=== PATIENT | female | born 1975 | race Caucasian/White ===

== ENCOUNTER 2024-11-30 09:46 | Day surgery (SDC) | payer OTHER ==
[2024-11-23 11:14] LABS: HEMOGLOBIN 14.1 g/dL (12.0-15.00); MEAN CELL VOLUME 92.4 fL (80.00-100.00); MEAN CORPUSCULAR HEMOGLOBIN 30.3 pg (27.00-32.0); MEAN CORPUSCULAR HGB CONC 32.8 g/dl (32.0-36.0); PLATELET COUNT 253 K/uL (150-450); RED BLOOD COUNT 4.65 M/uL (4.00-6.00); RED CELL DISTRIBUTION WIDTH 15.3 % (11.5-14.5)
[2024-11-23 11:47] LABS: INR 0.98; PARTIAL THROMBOPLASTIN TIME 25.7 SECONDS (22.0-34.0); PROTHROMBIN TIME 10.7 SECONDS (9.0-11.5)
[2024-11-23 11:57] LABS: ALBUMIN 3.7 gm/dL (3.4-5.0); BILIRUBIN TOTAL 0.4 mg/dL (0.3-1.2); CALCIUM 9.1 mg/dL (8.5-10.1); CREATININE SERUM 0.72 mg/dL (0.55-1.02); GFR 86.82; GLOBULINA 3.5 G/DL (2.4-3.5); POTASSIUM 4.29 mEq/L (3.5-5.1); TOTAL PROTEIN 7.2 gm/dL (6.4-8.2)
[2024-11-23 11:58] VITALS: BP 142/83
[~2024-11-30] VITALS: Ht 167.6 cm; Wt 84.8 kg
[~2024-11-30 09:46] MED LIST: ATROVENT 00.5 MG/2.5 IH; AVELOX ABC PAC400 MG; BUDESONIDE0.5 MG/2 M; BUDESONIDE0.5 MG/2 M IH; FYAVOLV 0.5 MG1 EACH PO; IBU800 MG PO; IPRATROPIUM0.2 MG/ML; IRON240 MG; MAGNESIUM200 MG PO; MUCINEX600 MG; OMNIPRED10 ML; SYNTHROID88 MCG PO; VITAMIN A; VITAMIN C1000 MG; VITAMIN D
[2024-11-30] MEDS ORDERED: POVIDONE-IODINE 118 ML BOTT TOP ONE (13:04)
[2024-11-30] MEDS ORDERED: KETOROLAC TROMETHAMINE 30 MG VIAL IV ONE (14:30)
== END 2024-11-30 16:25 | disposition home or self-care (01) ==
LOC: CIR.AMB 09:46
PROVIDERS: ATTEND Student in an Organized Health Care Education/Training Program
DX: N93.8 Other specified abnormal uterine and vaginal bleeding (principal); N84.0 Polyp of corpus uteri; I10 Essential (primary) hypertension; Z91.09 Other allergy status, other than to drugs and biological substances; J45.909 Unspecified asthma, uncomplicated; F41.9 Anxiety disorder, unspecified; M19.90 Unspecified osteoarthritis, unspecified site

== ENCOUNTER 2025-01-21 09:30 | Inpatient (IN) | payer OTHER ==
[~2025-01-21] VITALS: Ht 167.6 cm; Wt 85.7 kg
[2025-01-21 12:30] LABS: HEMATOCRIT 42.8 % (36.0-45.00); HEMOGLOBIN 14.3 g/dL (12.0-15.00); MEAN CELL VOLUME 92.9 fL (80.00-100.00); MEAN CORPUSCULAR HEMOGLOBIN 30.9 pg (27.00-32.0); MEAN CORPUSCULAR HGB CONC 33.3 g/dl (32.0-36.0); PLATELET COUNT 239 K/uL (150-450); RED BLOOD COUNT 4.61 M/uL (4.00-6.00); RED CELL DISTRIBUTION WIDTH 15.8 % (11.5-14.5)
[2025-01-21 13:21] LABS: ALBUMIN 3.5 gm/dL (3.4-5.0); ALKALINE PHOSPHATASE 49 U/L (50-136); ALT/SGPT 15 U/L (12-78); ANION GAP 7 (10.0-20.0); AST/SGOT 14 U/L (15-37); BILIRUBIN TOTAL 0.32 mg/dL (0.3-1.2); BLOOD UREA NITROGEN 12 mg/dL (7-18); BUN CREA RATIO 19 (7.0-25.0); CARBON DIOXIDE 30 mEq/L (21-32); CHLORIDE 112 mmol/L (98-107); CREATININE SERUM 0.63 mg/dL (0.55-1.02); GFR 101.29; GLOBULINA 3.3 G/DL (2.4-3.5); GLUCOSE FASTING 78 mg/dL (65-100); OSMOLALITY SERUM 287 MOSM/KG (275-295); POTASSIUM 4.25 mEq/L (3.5-5.1); SODIUM 145 mmol/L (136-145); TOTAL PROTEIN 6.8 gm/dL (6.4-8.2)
[2025-01-21 13:27] LABS: HCG QUANTITATIVE < 1 mUI/mL (1-3)
[2025-01-21 15:04] LABS: INR 1.02; PARTIAL THROMBOPLASTIN TIME 25.9 SECONDS (22.0-34.0); PROTHROMBIN TIME 11.1 SECONDS (9.0-11.5)
[2025-02-04 13:02] LABS: RH NEGATIVE
[2025-02-08] MEDS ORDERED: CEFAZOLIN SODIUM 1,000 MG VIAL ONE ×3 (12:03→22:28)
[2025-02-08] MEDS ORDERED: POVIDONE-IODINE 118 ML BOTT TOP ONE (14:20)
[2025-02-08] MEDS ORDERED: METRONIDAZOLE/SODIUM CHLORIDE 500 MG/100 ML PIGGYBACK IV ONE (18:57)
[2025-02-08] MEDS ORDERED: TRANEXAMIC ACID 100MG/1ML (1000MG) AMPUL IV ONE (18:58)
[2025-02-08] MEDS ORDERED: VISTASEAL DUAL APPICATOR 1 EACH APPL TOP ONE (21:00)
[2025-02-08] MEDS ORDERED: THROMBIN,HU/FIBRINOGEN/CALCIUM 10 ML SYRINGE TOP ONE (21:00)
[2025-02-08] MEDS ORDERED: SUGAMMADEX SODIUM 200 MG/2 ML VIAL IV ONE (21:55)
[2025-02-08] MEDS ORDERED: HEMOSTATIC MATRIX WITH THROMBIN KIT TOP ONE (23:29)
[2025-02-08] MEDS ORDERED: SURGIFLO APPLICATOR 1 EACH APPL TOP ONE (23:29)
[2025-02-09] MEDS ORDERED: KETOROLAC TROMETHAMINE 30 MG VIAL IV SCH (00:40)
[2025-02-09] MEDS ORDERED: RINGERS SOLUTION,LACTATED 1,000 ML IV SCH (00:45)
[2025-02-09] MEDS ORDERED: ACETAMINOPHEN 500 MG GEL..CAP PO SCH (01:00)
[2025-02-09] MEDS ORDERED: ENALAPRILAT DIHYDRATE 2.5 MG/2 ML VIAL IV ONE ×3 (01:40→02:45)
[2025-02-09] MEDS ORDERED: KETOROLAC TROMETHAMINE 30 MG VIAL IV ONE ×2 (01:40→02:40)
[2025-02-09] MEDS ORDERED: GABAPENTIN 300 MG CAPSULE PO SCH (01:55)
[2025-02-09] MEDS ORDERED: MORPHINE SULFATE 4 MG/ML CARTRIDGE IV PRN (02:00)
[2025-02-09] MEDS ORDERED: ENALAPRILAT DIHYDRATE 1.25 MG/ML VIAL IV ONE (02:40)
[2025-02-09] MEDS ORDERED: ALBUTEROL SULFATE 3 ML/2.5 MG AMPUL.NEB IH STA (02:47)
[2025-02-09] MEDS ORDERED: ALBUTEROL SULFATE 3 ML/2.5 MG AMPUL.NEB IH SCH (02:48)
[2025-02-09 04:07] LABS: HEMOGLOBIN 12.1 g/dL (12.0-15.00); MEAN CELL VOLUME 91.5 fL (80.00-100.00); MEAN CORPUSCULAR HEMOGLOBIN 30.8 pg (27.00-32.0); MEAN CORPUSCULAR HGB CONC 33.7 g/dl (32.0-36.0); PLATELET COUNT 159 K/uL (150-450); RED BLOOD COUNT 3.94 M/uL (4.00-6.00); RED CELL DISTRIBUTION WIDTH 15.2 % (11.5-14.5)
[2025-02-09] MEDS ORDERED: KETOROLAC TROMETHAMINE 30 MG VIAL ONE (06:47)
[2025-02-09] MEDS ORDERED: ALBUTEROL SULFATE 3 ML/2.5 MG AMPUL.NEB IH ONE (07:44)
[2025-02-09] MEDS ORDERED: FUROsemide 20 MG/2 ML VIAL ONE (09:18)
[2025-02-09] MEDS ORDERED: FUROsemide 20 MG/2 ML VIAL IV ONE ×2 (09:30→22:45)
[2025-02-09] MEDS ORDERED: IPRATROPIUM BROMIDE 0.5 MG/2.5 ML AMPUL.NEB IH NR (10:00)
[2025-02-09 10:49] LABS: ALBUMIN 2.3 gm/dL (3.4-5.0); BILIRUBIN TOTAL 0.65 mg/dL (0.3-1.2); CALCIUM 7.5 mg/dL (8.5-10.1); CREATININE SERUM 0.76 mg/dL (0.55-1.02); GFR 81.57; GLOBULINA 2.2 G/DL (2.4-3.5); POTASSIUM 3.44 mEq/L (3.5-5.1); TOTAL PROTEIN 4.5 gm/dL (6.4-8.2)
[2025-02-09] MEDS ORDERED: METHYLPREDNISOLONE SOD SUCC 125 MG VIAL ONE (11:30)
[2025-02-09] MEDS ORDERED: DIPHENHYDRAMINE HCL 50 MG/ML VIAL 1ML ONE (11:30)
[2025-02-09] MEDS ORDERED: POTASSIUM CHLORIDE IN WATER 100 ML IV NR (12:35)
[2025-02-09 12:58] VITALS: BP 107/71; O2SAT 96
[2025-02-09] MEDS ORDERED: IPRATROPIUM BROMIDE 0.5 MG/2.5 ML AMPUL.NEB IH SCH (13:00)
[2025-02-09] MEDS ORDERED: METHYLPREDNISOLONE SOD SUCC 125 MG VIAL IV ONE (13:45)
[2025-02-09] MEDS ORDERED: DIPHENHYDRAMINE HCL 50 MG/ML VIAL 1ML IV ONE (13:45)
[2025-02-09 14:16] VITALS: O2SAT 99
[2025-02-09 17:00] VITALS: BP 110/72; O2SAT 100; O2SAT 98
[2025-02-09 21:00] VITALS: O2SAT 97
[2025-02-10] VITALS (9 sets, daily range): BP systolic 108–123; BP diastolic 49–76; O2SAT 90–99
[2025-02-10 07:55] LABS: MEAN CELL VOLUME 93.1 fL (80.00-100.00); MEAN CORPUSCULAR HGB CONC 33.5 g/dl (32.0-36.0); PLATELET COUNT 136 K/uL (150-450); RED BLOOD COUNT 2.37 M/uL (4.00-6.00); RED CELL DISTRIBUTION WIDTH 14.6 % (11.5-14.5)
[2025-02-10 08:03] LABS: HEMATOCRIT 22.1 % (36.0-45.00); HEMOGLOBIN 7.4 g/dL (12.0-15.00); MEAN CORPUSCULAR HEMOGLOBIN 31.2 pg (27.00-32.0)
[2025-02-10] MEDS ORDERED: FUROsemide 20 MG/2 ML VIAL IV SCH (08:15)
[2025-02-10 09:04] LABS: MEAN CELL VOLUME 91.4 fL (80.00-100.00); MEAN CORPUSCULAR HGB CONC 34.2 g/dl (32.0-36.0); PLATELET COUNT 146 K/uL (150-450); RED BLOOD COUNT 2.39 M/uL (4.00-6.00); RED CELL DISTRIBUTION WIDTH 14.8 % (11.5-14.5)
[2025-02-10 09:07] LABS: HEMATOCRIT 21.8 % (36.0-45.00); MEAN CORPUSCULAR HEMOGLOBIN 31.3 pg (27.00-32.0)
[2025-02-10 09:07] LABS: CALCIUM 7.6 mg/dL (8.5-10.1); CREATININE SERUM 0.56 mg/dL (0.55-1.02); GFR 116.04; POTASSIUM 3.38 mEq/L (3.5-5.1)
[2025-02-10 09:10] LABS: HEMOGLOBIN 7.5 g/dL (12.0-15.00)
[2025-02-10] MEDS ORDERED: SOD FERRIC GLUC COMPLX/SUCROSE 62.5 MG/5 ML AMPUL IV SCH (12:00)
[2025-02-10] MEDS ORDERED: POTASSIUM CHLORIDE IN WATER 100 ML IV NR (17:00)
[2025-02-11] VITALS: O2SAT 90
[2025-02-11 00:27] VITALS: BP 118/79; O2SAT 100
[2025-02-11 05:08] VITALS: O2SAT 89
[2025-02-11 08:00] VITALS: BP 145/78; O2SAT 100
[2025-02-11 08:39] LABS: MEAN CELL VOLUME 89.4 fL (80.00-100.00); MEAN CORPUSCULAR HGB CONC 34.8 g/dl (32.0-36.0); PLATELET COUNT 151 K/uL (150-450); RED BLOOD COUNT 3.13 M/uL (4.00-6.00); RED CELL DISTRIBUTION WIDTH 17.1 % (11.5-14.5)
[2025-02-11 08:47] LABS: MEAN CORPUSCULAR HEMOGLOBIN 30.9 pg (27.00-32.0)
[2025-02-11 08:49] LABS: HEMOGLOBIN 9.7 g/dL (12.0-15.00)
[2025-02-11 09:29] VITALS: O2SAT 99
[2025-02-11 12:47] VITALS: O2SAT 90
== END 2025-02-11 15:18 | disposition home or self-care (01) | DRG 742 ==
LOC: OB/GYN 01-25 09:30 → SURH 02-08 10:40 → O/R 02-08 10:40 → OB/GYN 02-08 20:47 → SURH 02-09 09:05
PROVIDERS: ADMIT Student in an Organized Health Care Education/Training Program; ATTEND Student in an Organized Health Care Education/Training Program
PROC: 0UN14ZZ Release Left Ovary, Percutaneous Endoscopic Approach (ICD-10-PCS; principal; 2025-02-09)
PROC: 0UT94ZZ Resection of Uterus, Percutaneous Endoscopic Approach (ICD-10-PCS; 2025-02-09)
PROC: 0UT74ZZ Resection of Bilateral Fallopian Tubes, Percutaneous Endoscopic Approach (ICD-10-PCS; 2025-02-09)
PROC: 0DNW4ZZ Release Peritoneum, Percutaneous Endoscopic Approach (ICD-10-PCS; 2025-02-09)
PROC: 0TNB4ZZ Release Bladder, Percutaneous Endoscopic Approach (ICD-10-PCS; 2025-02-09)
PROC: 0TJB8ZZ Inspection of Bladder, Via Natural or Artificial Opening Endoscopic (ICD-10-PCS; 2025-02-09)
PROC: 8E0W4CZ Robotic Assisted Procedure of Trunk Region, Percutaneous Endoscopic Approach (ICD-10-PCS; 2025-02-09)
PROC: 4A12X4Z Monitoring of Cardiac Electrical Activity, External Approach (ICD-10-PCS; 2025-02-09)
PROC: 4A033R1 Measurement of Arterial Saturation, Peripheral, Percutaneous Approach (ICD-10-PCS; 2025-02-09)
PROC: 3E0F7GC Introduction of Other Therapeutic Substance into Respiratory Tract, Via Natural or Artificial Opening (ICD-10-PCS; 2025-02-09)
PROC: BB24YZZ Computerized Tomography (CT Scan) of Bilateral Lungs using Other Contrast (ICD-10-PCS; 2025-02-09)
PROC: 30233N1 Transfusion of Nonautologous Red Blood Cells into Peripheral Vein, Percutaneous Approach (ICD-10-PCS; 2025-02-10)
DX: D25.1 Intramural leiomyoma of uterus (principal); D62 Acute posthemorrhagic anemia; J95.89 Other postprocedural complications and disorders of respiratory system, not elsewhere classified; N94.6 Dysmenorrhea, unspecified; R09.02 Hypoxemia
CPT/HCPCS: 58573; 44180; 52000; 82805; 36600; 94640; 71260; 93228; 36430; S2900; 71275

== ENCOUNTER 2025-02-04 09:43 | Outpatient (CLI) | payer OTHER ==
[2025-02-04 10:25] LABS: HEMATOCRIT 42.9 % (36.0-45.00); HEMOGLOBIN 14.4 g/dL (12.0-15.00); MEAN CELL VOLUME 92.2 fL (80.00-100.00); MEAN CORPUSCULAR HEMOGLOBIN 30.8 pg (27.00-32.0); MEAN CORPUSCULAR HGB CONC 33.4 g/dl (32.0-36.0); PLATELET COUNT 233 K/uL (150-450); RED BLOOD COUNT 4.65 M/uL (4.00-6.00); RED CELL DISTRIBUTION WIDTH 14.9 % (11.5-14.5)
[2025-02-04 10:34] LABS: URINE APPEARANCE Clear; URINE BILIRRUBIN Negative (NEGATIVE); URINE BLOOD Negative; URINE COLOR Yellow; URINE GLUCOSE Negative (NEGATIVE); URINE KETONE Negative (NEGATIVE); URINE LEUKOCYTE Trace; URINE NITRATE Negative; URINE PROTEIN Negative (NEGATIVE); URINE RBC 8.2 uL (0.0-20.8); URINE WBC 3.9 uL (0.0-23.2)
[2025-02-04 10:38] LABS: URINE BACTERIA 2.4 uL (0.0-1933); URINE EPITHELIAL CELLS 1.1 uL (0.0-38.8)
[2025-02-04 11:36] LABS: ALBUMIN 3.5 gm/dL (3.4-5.0); ALKALINE PHOSPHATASE 49 U/L (50-136); ALT/SGPT 16 U/L (12-78); ANION GAP 8 (10.0-20.0); AST/SGOT 13 U/L (15-37); BILIRUBIN TOTAL 0.27 mg/dL (0.3-1.2); BLOOD UREA NITROGEN 12 mg/dL (7-18); BUN CREA RATIO 19 (7.0-25.0); CALCIUM 8.9 mg/dL (8.5-10.1); CARBON DIOXIDE 28 mEq/L (21-32); CHLORIDE 110 mmol/L (98-107); CREATININE SERUM 0.62 mg/dL (0.55-1.02); GFR 103.18; GLOBULINA 3.1 G/DL (2.4-3.5); GLUCOSE FASTING 84 mg/dL (65-100); OSMOLALITY SERUM 282 MOSM/KG (275-295); POTASSIUM 4.21 mEq/L (3.5-5.1); SODIUM 142 mmol/L (136-145); TOTAL PROTEIN 6.6 gm/dL (6.4-8.2)
[2025-02-04 11:38] LABS: HCG QUANTITATIVE < 1 mUI/mL (1-3)
== END 2025-02-04 09:44 | disposition home or self-care (01) ==
LOC: LAB 09:43
PROVIDERS: ATTEND Student in an Organized Health Care Education/Training Program
DX: D25.9 Leiomyoma of uterus, unspecified (principal); N93.9 Abnormal uterine and vaginal bleeding, unspecified

== ENCOUNTER 2025-03-14 12:45 | Inpatient (IN) | payer OTHER ==
[~2025-03-14] VITALS: Ht 167.6 cm; Wt 79.4 kg
--- NOTE | 2025-03-14 18:18 | NUR ---
SE ORIENTA PTE SOBRE TX A SEGUIR, LA MISMA REFIERE ENTENDER. SE TISH MUESTRA DE LAB Y SE CANALIZA EN ANTE BRAZO IZQ
[2025-03-14 19:43] LABS: BASO % 0.9 % (0.1-1.2); EOS % 1.2 % (0.7-7.0); HEMATOCRIT 41.7 % (34.1-44.9); HEMOGLOBIN 13.8 g/dL (11.2-15.7); LYMPH % 23.7 % (19.3-53.1); MEAN CORPUSCULAR HEMOGLOBIN 29.8 pg (25.6-32.2); MONO % 7.6 % (4.7-12.5); NEUT % 65.8 % (34.0-71.1); PLATELET COUNT 397 K/uL (163-369); RED BLOOD COUNT 4.63 M/uL (3.93-5.22)
[2025-03-14] MEDS ORDERED: FAMOTIDINE/PF 20 MG in 0.9 % SODIUM CHLORIDE 8 ML IV PUSH SCH (19:49)
[2025-03-14] MEDS ORDERED: PIPERACILLIN/TAZOBACTAM SODIUM 3.375 GM in DEXTROSE 5 % IN WATER 100 ML IV SCH (19:49)
[2025-03-14] MEDS ORDERED: MONTELUKAST SODIUM 10 MG TABLET PO SCH (19:49)
[2025-03-14] MEDS ORDERED: BENZONATATE 100 MG CAPSULE PO SCH (19:50)
[2025-03-14] MEDS ORDERED: ACETAMINOPHEN 500 MG GEL..CAP PO PRN (20:00)
[2025-03-14] MEDS ORDERED: ONDANSETRON HCL 4 MG in 0.9 % SODIUM CHLORIDE 50 ML IV PRN (20:00)
[2025-03-14] MEDS ORDERED: 0.9 % SODIUM CHLORIDE 1,000 ML IV SCH (20:00)
[2025-03-14] MEDS ORDERED: LEVALBUTEROL HCL 1.25 MG/3 ML SOLUTION IH ONE (20:33)
[2025-03-14] MEDS ORDERED: BUDESONIDE 0.5 MG/2 ML AMPUL.NEB IH ONE (20:33)
[2025-03-14] MEDS ORDERED: IPRATROPIUM BROMIDE 0.5 MG/2.5 ML AMPUL.NEB IH ONE (20:33)
[2025-03-14] MEDS ORDERED: LEVALBUTEROL HCL 1.25 MG/3 ML SOLUTION IH SCH (21:00)
[2025-03-14] MEDS ORDERED: BUDESONIDE 0.5 MG/2 ML AMPUL.NEB IH SCH (21:00)
[2025-03-14] MEDS ORDERED: IPRATROPIUM BROMIDE 0.5 MG/2.5 ML AMPUL.NEB IH SCH (21:00)
[2025-03-15 03:27] LABS: INR 1.03; PARTIAL THROMBOPLASTIN TIME 25.6 SECONDS (22.0-34.0); PROTHROMBIN TIME 11.2 SECONDS (9.0-11.5)
[2025-03-15 03:38] LABS: COVID-19 AG NEGATIVE (NEGATIVE)
[2025-03-15 03:42] LABS: ALBUMIN 3.4 gm/dL (3.4-5.0); BILIRUBIN TOTAL 0.19 mg/dL (0.3-1.2); CALCIUM 9.1 mg/dL (8.5-10.1); CREATININE SERUM 0.73 mg/dL (0.55-1.02); GFR 85.45; POTASSIUM 4.79 mEq/L (3.5-5.1); TOTAL PROTEIN 6.4 gm/dL (6.4-8.2)
[2025-03-15 03:57] LABS: C-REACTIVE PROTEIN 0.43 MG/DL (0.00-0.29)
[2025-03-15] MEDS ORDERED: LEVOTHYROXINE SODIUM 88 MCG TABLET PO SCH (06:00)
[2025-03-15 07:57] LABS: PH,URINE 5.5 (5.0-8.0); URINE APPEARANCE Clear; URINE BILIRRUBIN Negative (NEGATIVE); URINE BLOOD Moderate; URINE COLOR Yellow; URINE GLUCOSE Negative (NEGATIVE); URINE KETONE Trace (NEGATIVE); URINE LEUKOCYTE Negative; URINE NITRATE Negative; URINE PROTEIN Negative (NEGATIVE); URINE UROBILINOGEN 0.2 E.U./dl
[2025-03-15 08:02] LABS: URINE BACTERIA 34.2 uL (0.0-1933); URINE EPITHELIAL CELLS 2.5 uL (0.0-38.8); URINE RBC 8.8 uL (0.0-20.8); URINE WBC 6.1 uL (0.0-23.2)
[2025-03-15 08:15] VITALS: BP 131/83; O2SAT 97
[2025-03-15] MEDS ORDERED: BENZONATATE 200 MG CAPSULE PO SCH (09:00)
[2025-03-15 16:00] VITALS: BP 122/70; O2SAT 99
[2025-03-15 21:35] LABS: HEMATOCRIT 44.6 % (34.1-44.9); HEMOGLOBIN 14.5 g/dL (11.2-15.7); LYMPH % 20.2 % (19.3-53.1); MEAN CORPUSCULAR HEMOGLOBIN 29.9 pg (25.6-32.2); MONO % 6.3 % (4.7-12.5); NEUT % 69.8 % (34.0-71.1); PLATELET COUNT 424 K/uL (163-369); RED BLOOD COUNT 4.85 M/uL (3.93-5.22); RED CELL DISTRIBUTION WIDTH 14.7 % (11.6-14.4)
[2025-03-15 21:36] LABS: BASO % 1.1 % (0.1-1.2); EOS # 0.13 (0.04-0.54); EOS % 1.6 % (0.7-7.0); LYMPH # 1.68 (1.18-3.74); MONO # 0.52 (0.24-0.82); NEUT # 5.82 (1.56-6.13)
[2025-03-15] MEDS ORDERED: MIDAZOLAM HCL 2 MG/2 ML VIAL IV ONE (22:30)
[2025-03-15] MEDS ORDERED: FentaNYL CITRATE/PF 50MCG/ML 2ML VIAL IJ ONE (22:30)
[2025-03-16 01:04] VITALS: BP 118/69; O2SAT 100
[2025-03-16 07:35] LABS: EOS # 0.18 (0.04-0.54); EOS % 2.5 % (0.7-7.0); HEMATOCRIT 38.9 % (34.1-44.9); HEMOGLOBIN 12.5 g/dL (11.2-15.7); LYMPH # 1.25 (1.18-3.74); LYMPH % 17.2 % (19.3-53.1); MEAN CORPUSCULAR HEMOGLOBIN 29.6 pg (25.6-32.2); MONO # 0.52 (0.24-0.82); MONO % 7.2 % (4.7-12.5); NEUT # 5.17 (1.56-6.13); NEUT % 71.3 % (34.0-71.1); PLATELET COUNT 327 K/uL (163-369); RED BLOOD COUNT 4.22 M/uL (3.93-5.22); RED CELL DISTRIBUTION WIDTH 14.9 % (11.6-14.4)
[2025-03-16 08:51] VITALS: BP 142/90; O2SAT 99
[2025-03-16] MEDS ORDERED: LEVALBUTEROL HCL 1.25 MG/3 ML SOLUTION IH SCH (12:00)
[2025-03-16] MEDS ORDERED: IPRATROPIUM BROMIDE 0.5 MG/2.5 ML AMPUL.NEB IH SCH (12:00)
[2025-03-16 16:00] VITALS: BP 118/76; O2SAT 99
[2025-03-17 01:27] VITALS: BP 129/74; O2SAT 100
[2025-03-17 08:00] VITALS: BP 115/75; O2SAT 98
[2025-03-17 08:17] LABS: BASO % 0.8 % (0.1-1.2); EOS # 0.11 (0.04-0.54); EOS % 1.8 % (0.7-7.0); HEMATOCRIT 40.1 % (34.1-44.9); HEMOGLOBIN 12.7 g/dL (11.2-15.7); LYMPH # 1.08 (1.18-3.74); LYMPH % 17.9 % (19.3-53.1); MEAN CORPUSCULAR HEMOGLOBIN 29.4 pg (25.6-32.2); MONO # 0.47 (0.24-0.82); MONO % 7.8 % (4.7-12.5); NEUT # 4.28 (1.56-6.13); PLATELET COUNT 339 K/uL (163-369); RED BLOOD COUNT 4.32 M/uL (3.93-5.22); RED CELL DISTRIBUTION WIDTH 14.6 % (11.6-14.4)
[2025-03-17 16:00] VITALS: BP 125/84; O2SAT 95
[2025-03-17] MEDS ORDERED: IPRATROPIUM BROMIDE 0.5 MG/2.5 ML AMPUL.NEB IH SCH (21:00)
[2025-03-17] MEDS ORDERED: LEVALBUTEROL HCL 1.25 MG/3 ML SOLUTION IH SCH (21:00)
[2025-03-18] VITALS: BP 144/88; O2SAT 99
[2025-03-18 08:00] VITALS: BP 129/80; O2SAT 97
[2025-03-18 16:26] VITALS: BP 120/77; O2SAT 100
[2025-03-19 00:45] VITALS: BP 129/89; O2SAT 99
[2025-03-19 08:18] VITALS: BP 117/81; O2SAT 98
[2025-03-19 15:00] VITALS: BP 122/78; O2SAT 98
[2025-03-19] MEDS ORDERED: CYCLOBENZAPRINE HCL 5 MG TABLET PO PRN (16:00)
[2025-03-20 00:23] VITALS: BP 126/87; O2SAT 98
[2025-03-20 07:56] VITALS: BP 115/79; O2SAT 98
[2025-03-20 15:30] VITALS: BP 132/86; O2SAT 98
[2025-03-21 00:52] VITALS: BP 133/86; O2SAT 96
[2025-03-21 07:52] LABS: BASO % 0.9 % (0.1-1.2); HEMATOCRIT 38.5 % (34.1-44.9); HEMOGLOBIN 12.7 g/dL (11.2-15.7); LYMPH # 1.26 (1.18-3.74); LYMPH % 18.8 % (19.3-53.1); MEAN CORPUSCULAR HEMOGLOBIN 30.4 pg (25.6-32.2); MONO # 0.56 (0.24-0.82); MONO % 8.4 % (4.7-12.5); NEUT # 4.57 (1.56-6.13); NEUT % 68.3 % (34.0-71.1); PLATELET COUNT 303 K/uL (163-369); RED BLOOD COUNT 4.18 M/uL (3.93-5.22); RED CELL DISTRIBUTION WIDTH 14.2 % (11.6-14.4)
[2025-03-21 08:22] LABS: ALBUMIN 3.1 gm/dL (3.4-5.0); BILIRUBIN TOTAL 0.3 mg/dL (0.3-1.2); CALCIUM 8.3 mg/dL (8.5-10.1); CREATININE SERUM 0.62 mg/dL (0.55-1.02); GFR 103.18; GLOBULINA 2.5 G/DL (2.4-3.5); POTASSIUM 4.43 mEq/L (3.5-5.1); TOTAL PROTEIN 5.6 gm/dL (6.4-8.2)
[2025-03-21 08:54] VITALS: BP 128/89; O2SAT 98
[2025-03-21 16:00] VITALS: BP 128/81; O2SAT 99
[2025-03-22 00:27] VITALS: BP 111/75; O2SAT 100
[2025-03-22 08:00] VITALS: BP 145/85; O2SAT 96
[2025-03-22] MEDS ORDERED: RINGERS SOLUTION,LACTATED 1,000 ML IV SCH (15:00)
[2025-03-22 16:00] VITALS: BP 129/78; O2SAT 96
[2025-03-22] MEDS ORDERED: IPRATROPIUM BROMIDE 0.5 MG/2.5 ML AMPUL.NEB IH SCH (21:00)
[2025-03-23 00:48] VITALS: BP 121/76; O2SAT 100
[2025-03-23 08:00] VITALS: BP 127/83; O2SAT 98
[2025-03-23 17:17] VITALS: BP 135/84; O2SAT 99
[2025-03-23] MEDS ORDERED: IOVERSOL 320 MG/ML - 50 ML VIAL IV ONE (18:04)
[2025-03-23] MEDS ORDERED: BUPIVACAINE HCL/MPF 0.5% 30ML VIAL ONE (18:26)
[2025-03-24 01:41] VITALS: BP 144/77; O2SAT 98
[2025-03-24 06:00] VITALS: O2SAT 95
[2025-03-24 06:59] LABS: BASO % 0.6 % (0.1-1.2); EOS # 0.11 (0.04-0.54); EOS % 1.3 % (0.7-7.0); HEMATOCRIT 37.6 % (34.1-44.9); HEMOGLOBIN 12.4 g/dL (11.2-15.7); LYMPH # 0.79 (1.18-3.74); LYMPH % 9.3 % (19.3-53.1); MONO # 0.54 (0.24-0.82); MONO % 6.4 % (4.7-12.5); NEUT # 6.95 (1.56-6.13); NEUT % 81.9 % (34.0-71.1); PLATELET COUNT 299 K/uL (163-369); RED BLOOD COUNT 4.13 M/uL (3.93-5.22); RED CELL DISTRIBUTION WIDTH 14.3 % (11.6-14.4)
[2025-03-24 08:00] VITALS: BP 121/83; O2SAT 98
[2025-03-24] MEDS ORDERED: IPRATROPIUM BROMIDE 0.5 MG/2.5 ML AMPUL.NEB IH SCH (09:00)
== END 2025-03-24 14:13 | disposition home or self-care (01) | DRG 982 ==
LOC: ER 12:45 → SURH 20:30 → SURG 20:30 → SEC-K 20:30 → SURG 03-15 01:12 → SURH 03-15 12:08
PROVIDERS: Emergency Medicine; General Practice; Internal Medicine; Radiology Vascular & Interventional Radiology; ADMIT Student in an Organized Health Care Education/Training Program; ATTEND Student in an Organized Health Care Education/Training Program
PROC: BW21YZZ Computerized Tomography (CT Scan) of Abdomen and Pelvis using Other Contrast (ICD-10-PCS; 2025-03-14)
PROC: 0W9J30Z Drainage of Pelvic Cavity with Drainage Device, Percutaneous Approach (ICD-10-PCS; 2025-03-15)
PROC: BW21YZZ Computerized Tomography (CT Scan) of Abdomen and Pelvis using Other Contrast (ICD-10-PCS; 2025-03-15)
PROC: BW21YZZ Computerized Tomography (CT Scan) of Abdomen and Pelvis using Other Contrast (ICD-10-PCS; 2025-03-21)
PROC: 0WPJ30Z Removal of Drainage Device from Pelvic Cavity, Percutaneous Approach (ICD-10-PCS; 2025-03-23)
PROC: 0WW Anatomical Regions, General, Revision (ICD-10-PCS; principal; 2025-03-23 21:00)
DX: L76.32 Postprocedural hematoma of skin and subcutaneous tissue following other procedure (principal); J45.41 Moderate persistent asthma with (acute) exacerbation; D18.09 Hemangioma of other sites; E03.9 Hypothyroidism, unspecified; N73.8 Other specified female pelvic inflammatory diseases; N93.8 Other specified abnormal uterine and vaginal bleeding
CPT/HCPCS: 72191

== ENCOUNTER 2025-04-18 08:16 | Outpatient (CLI) | payer OTHER | END 2025-04-18 08:30 | disposition home or self-care (01) | LOC: TOM 08:16 | PROVIDERS: ATTEND Student in an Organized Health Care Education/Training Program | DX: O71.7 Obstetric hematoma of pelvis (principal) ==

== ENCOUNTER 2025-10-12 10:38 | Outpatient (CLI) | payer OTHER | END 2025-10-12 10:40 | disposition home or self-care (01) | LOC: TOM 10:38 | PROVIDERS: ATTEND Student in an Organized Health Care Education/Training Program | DX: K68.3 Retroperitoneal hematoma (principal); R10.23 Pelvic and perineal pain bilateral ==